=== PATIENT | female | born 1940 | race Caucasian/White ===

== ENCOUNTER → 2021-10-25 | Outpatient (CLI) | payer MEDICARE ==
[~2021-10-25] MED LIST: ACTOS15 MG PO; AMLODIPINE BESY10 MG PO; ASPIRIN EC81 MG PO; ATORVASTATIN CA20 MG PO; FLAX SEED PO; FUROSEMIDE20 MG PO; GLIPIZIDE5 MG PO; HYDRALAZINE HCL50 MG PO; LEVOTHYROXINE25 MCG PO; LISINOPRIL20 MG PO; MELOXICAM15 MG PO; METFORMIN HCL500 MG PO; MULTI VIT PO
== END ==
LOC: MAMO 05-12 11:30
DX: Z12.31 Encounter for screening mammogram for malignant neoplasm of breast (principal)
CPT/HCPCS: 77063; 77067

== ENCOUNTER → 2022-01-13 | Outpatient (CLI) | payer MEDICARE | LOC: OPSV 11:49 | DX: E86.0 Dehydration (principal); N28.9 Disorder of kidney and ureter, unspecified | CPT/HCPCS: 96360; 96361; J7030 ==